=== PATIENT | male | born 1940 | race Caucasian/White ===

== ENCOUNTER 2022-01-16 18:04 | Emergency (ER) | payer MEDICARE, OTHER ==
[~2022-01-16] VITALS: Ht 177.8 cm; Wt 82.0 kg
[~2022-01-16 18:04] MED LIST: LISINOPRIL10 MG PO; NAPROSYN500 MG PO; NEXIUM40 M1 PO; TESSALON PER100 MG PO
[2022-01-16 21:16] LABS: HEMATOCRIT 45.2 % (39.0-50.0); HEMOGLOBIN 14.4 g/dl (14.0-18.0); MEAN CELL VOLUME 85.9 fL CALC (80.0-100.0); MEAN CORPUSCULAR HGB 27.4 pG CALC (26.0-32.0); MEAN CORPUSCULAR HGB CONC 31.9 g/dL CAL (32.0-36.0); NEUT# 9.89 thou/uL (1.82-7.42); RED BLOOD COUNT 5.26 mill/uL (4.70-6.10); RED CELL DISTRI WIDTH 14.9 % (11.5-15.5)
[2022-01-16 21:33] LABS: ALBUMIN 4.6 g/dL (3.2-5.0); ALKALINE PHOSPHATASE 69 u/l (38-126); ANION GAP 17 (6-22 (CALC)); BILIRUBIN, TOTAL 0.4 mg/dL (0.0-1.4); BUN 21 mg/dL (8-23); BUN/CREATININE RATIO 18 (12-20 (CALC)); CARBON DIOXIDE 22 mmol/l (22-30); CHLORIDE 106 mmol/l (95-108); CREATININE 1.2 mg/dL (0.7-1.3); GFR 58 ML/MIN (>=60 (CALC)); GFR FOR AFR.AMER. > 60 ML/MIN (>=60 (CALC)); POTASSIUM 4.8 mmol/l (3.5-5.1); SGOT/AST 27 u/l (19-48); SODIUM 140 mmol/l (137-146)
[2022-01-16 23:13] LABS: URINE BILIRUBIN - DIPSTICK NEGATIVE (NEGATIVE); URINE BLOOD DIPSTICK NEGATIVE (NEGATIVE); URINE CLARITY CLEAR; URINE COLOR YELLOW; URINE GLUCOSE - DIPSTICK NEGATIVE (NEGATIVE); URINE KETONE NEGATIVE (NEGATIVE); URINE LEUK ESTERASE NEGATIVE (Negative); URINE NITRITE - DIPSTICK NEGATIVE (Negative); URINE PH 5.5 (4.5-8.0); URINE PROTEIN - DIPSTICK NEGATIVE (NEG-TRACE); URINE SPECIFIC GRAVITY 1.025; URINE UROBILINOGEN - DIPSTICK 0.2 E.U./dL (0.2)
[2022-01-16 23:40] VITALS: BP 120/80
== END 2022-01-16 23:40 | disposition home or self-care (01) ==
LOC: ED 18:04
PROVIDERS: Family Medicine
DX: S16.1XXA Strain of muscle, fascia and tendon at neck level, initial encounter (principal); S29.012A Strain of muscle and tendon of back wall of thorax, initial encounter; S39.012A Strain of muscle, fascia and tendon of lower back, initial encounter; S80.02XA Contusion of left knee, initial encounter; I10 Essential (primary) hypertension; V86.09XA Driver of other special all-terrain or other off-road motor vehicle injured in traffic accident, initial encounter; Y92.414 Local residential or business street as the place of occurrence of the external cause

== ENCOUNTER 2022-12-28 11:00 | Inpatient (IN) | payer MEDICARE, OTHER ==
[2022-12-28] VITALS (22 sets, daily range): BP systolic 137–205; BP diastolic 82–114
[~2022-12-28] VITALS: Ht 177.8 cm; Wt 75.0 kg
[2022-12-28 11:56] LABS: BASO% 0.3 % (0-3); EOS% 0.4 % (0-8); HEMOGLOBIN 13.4 g/dl (14.0-18.0); IMMATURE GRANULOCYTES 2.3 % (0.0-5.0); LYMPH% 23.7 % (15-41); MEAN CORPUSCULAR HGB 27.1 pG CALC (26.0-32.0); MEAN CORPUSCULAR HGB CONC 31.9 g/dL CAL (32.0-36.0); MONO% 15.6 % (2-13); NEUT# 10.95 thou/uL (1.82-7.42); NEUT% 57.7 % (42-76); RED BLOOD COUNT 4.94 mill/uL (4.70-6.10); RED CELL DISTRI WIDTH 15.1 % (11.5-15.5)
[2022-12-28 12:05] LABS: ALBUMIN 4.5 g/dL (3.2-5.0); BILIRUBIN, TOTAL 0.5 mg/dL (0.2-1.3); POTASSIUM 4.3 mmol/l (3.5-5.1); TOTAL PROTEIN 7.7 g/dL (6.3-8.2)
[2022-12-28 12:30] LABS: CREATININE 3.2 mg/dL (0.7-1.3)
[2022-12-28 13:09] LABS: URINE BILIRUBIN - DIPSTICK NEGATIVE (NEGATIVE); URINE BLOOD DIPSTICK MODERATE (NEGATIVE); URINE COLOR YELLOW; URINE GLUCOSE - DIPSTICK NEGATIVE (NEGATIVE); URINE KETONE NEGATIVE (NEGATIVE); URINE LEUK ESTERASE NEGATIVE (NEGATIVE); URINE PROTEIN - DIPSTICK NEGATIVE (NEG-TRACE); URINE UROBILINOGEN - DIPSTICK 0.2 E.U./dL (0.2)
[2022-12-28 13:23] LABS: URINE NITRITE - DIPSTICK NEGATIVE (Negative)
[2022-12-28] MEDS ORDERED: LISINOP/HCTZ1 TA2 PO (20:32)
[2022-12-29] VITALS (9 sets, daily range): BP systolic 107–196; BP diastolic 53–94
[2022-12-29 05:55] LABS: BASO% 0.4 % (0-3); EOS% 0.1 % (0-8); HEMATOCRIT 36.4 % (39.0-50.0); IMMATURE GRANULOCYTES 1.9 % (0.0-5.0); LYMPH% 18.6 % (15-41); MEAN CELL VOLUME 86.1 fL CALC (80.0-100.0); MEAN CORPUSCULAR HGB CONC 31.3 g/dL CAL (32.0-36.0); MONO% 16.9 % (2-13); NEUT# 12.18 thou/uL (1.82-7.42); NEUT% 62.1 % (42-76); RED BLOOD COUNT 4.23 mill/uL (4.70-6.10); RED CELL DISTRI WIDTH 15.2 % (11.5-15.5)
[2022-12-29 05:56] LABS: HEMOGLOBIN 11.4 g/dl (14.0-18.0)
[2022-12-29 06:32] LABS: ALBUMIN 3.5 g/dL (3.2-5.0); BILIRUBIN, TOTAL 0.4 mg/dL (0.2-1.3); POTASSIUM 3.8 mmol/l (3.5-5.1); TOTAL PROTEIN 6.3 g/dL (6.3-8.2)
[2022-12-30] VITALS (7 sets, daily range): BP systolic 126–190; BP diastolic 71–99
[2022-12-30 05:54] LABS: HEMATOCRIT 40.3 % (39.0-50.0); IMMATURE GRANULOCYTES 4.5 % (0.0-5.0); MEAN CELL VOLUME 84.8 fL CALC (80.0-100.0); MEAN CORPUSCULAR HGB 27.4 pG CALC (26.0-32.0); MEAN CORPUSCULAR HGB CONC 32.3 g/dL CAL (32.0-36.0); PLATELET COUNT 164 thou/uL (130-400); RED BLOOD COUNT 4.75 mill/uL (4.70-6.10); RED CELL DISTRI WIDTH 15.3 % (11.5-15.5)
[2022-12-30 06:01] LABS: MANUAL DIFFERENTIAL YES
[2022-12-30 06:18] LABS: BAND 0 % (0-8)
[2022-12-30 06:21] LABS: ALBUMIN 4.1 g/dL (3.2-5.0); BILIRUBIN, TOTAL 0.4 mg/dL (0.2-1.3); CREATININE 2.8 mg/dL (0.7-1.3); POTASSIUM 3.5 mmol/l (3.5-5.1); TOTAL PROTEIN 7.5 g/dL (6.3-8.2)
[2022-12-31] VITALS (8 sets, daily range): BP systolic 112–168; BP diastolic 59–85
[2022-12-31 05:36] LABS: HEMATOCRIT 36.2 % (39.0-50.0); HEMOGLOBIN 11.8 g/dl (14.0-18.0); IMMATURE GRANULOCYTES 3.7 % (0.0-5.0); MEAN CELL VOLUME 82.3 fL CALC (80.0-100.0); MEAN CORPUSCULAR HGB 26.8 pG CALC (26.0-32.0); MEAN CORPUSCULAR HGB CONC 32.6 g/dL CAL (32.0-36.0); PLATELET COUNT 170 thou/uL (130-400); RED CELL DISTRI WIDTH 15.2 % (11.5-15.5)
[2022-12-31 05:53] LABS: MANUAL DIFFERENTIAL YES
[2022-12-31 05:55] LABS: ALBUMIN 3.5 g/dL (3.2-5.0); BILIRUBIN, TOTAL 0.4 mg/dL (0.2-1.3); CREATININE 1.9 mg/dL (0.7-1.3)
[2022-12-31 06:26] LABS: POTASSIUM 2.7 mmol/l (3.5-5.1)
[2022-12-31 06:37] LABS: BAND 0 % (0-8)
[2023-01-01 04:12] VITALS: BP 164/85
[2023-01-01 06:34] LABS: ALBUMIN 3.4 g/dL (3.2-5.0); BASO% 0.2 % (0-3); CREATININE 1.6 mg/dL (0.7-1.3); EOS% 0.2 % (0-8); HEMATOCRIT 37.5 % (39.0-50.0); HEMOGLOBIN 12.1 g/dl (14.0-18.0); IMMATURE GRANULOCYTES 3.3 % (0.0-5.0); LYMPH% 18.1 % (15-41); MEAN CELL VOLUME 81.7 fL CALC (80.0-100.0); MEAN CORPUSCULAR HGB 26.4 pG CALC (26.0-32.0); MEAN CORPUSCULAR HGB CONC 32.3 g/dL CAL (32.0-36.0); MONO% 12.2 % (2-13); NEUT# 14.44 thou/uL (1.82-7.42); RED BLOOD COUNT 4.59 mill/uL (4.70-6.10); RED CELL DISTRI WIDTH 15.2 % (11.5-15.5); TOTAL PROTEIN 6.7 g/dL (6.3-8.2)
[2023-01-01 06:36] LABS: POTASSIUM 2.7 mmol/l (3.5-5.1)
[2023-01-01 06:40] LABS: BILIRUBIN, TOTAL 0.7 mg/dL (0.2-1.3)
[2023-01-01 07:07] VITALS: BP 142/83
[2023-01-01 11:10] VITALS: BP 124/67
[2023-01-01 15:39] VITALS: BP 101/56
[2023-01-01 20:00] VITALS: BP 112/61
[2023-01-01 20:05] VITALS: BP 112/61
[2023-01-02] VITALS (7 sets, daily range): BP systolic 126–1136; BP diastolic 65–92
[2023-01-02 05:26] LABS: BASO% 0.3 % (0-3); HEMOGLOBIN 11.1 g/dl (14.0-18.0); LYMPH% 20.1 % (15-41); MEAN CORPUSCULAR HGB CONC 31.7 g/dL CAL (32.0-36.0); MONO% 9.9 % (2-13); NEUT# 13.43 thou/uL (1.82-7.42); NEUT% 66.5 % (42-76); RED BLOOD COUNT 4.27 mill/uL (4.70-6.10); RED CELL DISTRI WIDTH 15.1 % (11.5-15.5)
[2023-01-02 05:35] LABS: ALBUMIN 2.8 g/dL (3.2-5.0); CREATININE 1.4 mg/dL (0.7-1.3); MAGNESIUM 1.5 mg/dL (1.6-2.3); TOTAL PROTEIN 5.6 g/dL (6.3-8.2)
[2023-01-02 05:37] LABS: BILIRUBIN, TOTAL 0.3 mg/dL (0.2-1.3)
[2023-01-02 06:02] LABS: IMMATURE GRANULOCYTES 3.2 % (0.0-5.0)
[2023-01-02] MEDS ORDERED: TAMSULOSIN HCL0.4 MG PO (12:32)
[2023-01-02] MEDS ORDERED: DEXAMETHASON6 MG PO (12:32)
[2023-01-02] MEDS ORDERED: CIPROFLOXACN500 MG PO (12:37)
== END 2023-01-02 17:38 | DRG 682 ==
LOC: ED 11:00 → ED-I 15:00 → ED 15:18 → MS2 15:49
PROVIDERS: Family Medicine; Nurse Practitioner Family; ADMIT Internal Medicine; ATTEND Internal Medicine
PROC: 0T9B70Z Drainage of Bladder with Drainage Device, Via Natural or Artificial Opening (ICD-10-PCS; principal; 2022-12-29)
DX: N17.9 Acute kidney failure, unspecified (principal); U07.1 COVID-19; M48.56XA Collapsed vertebra, not elsewhere classified, lumbar region, initial encounter for fracture; R97.20 Elevated prostate specific antigen [PSA]; N13.30 Unspecified hydronephrosis; E86.0 Dehydration; R33.9 Retention of urine, unspecified; N39.490 Overflow incontinence; I12.9 Hypertensive chronic kidney disease with stage 1 through stage 4 chronic kidney disease, or unspecified chronic kidney disease; N18.9 Chronic kidney disease, unspecified; M25.50 Pain in unspecified joint; Z85.46 Personal history of malignant neoplasm of prostate; Z92.3 Personal history of irradiation
CPT/HCPCS: J3475

== ENCOUNTER 2024-12-07 18:48 | Emergency (ER) | payer MEDICARE, OTHER ==
[~2024-12-07] VITALS: Ht 177.8 cm; Wt 84.0 kg
[~2024-12-07 18:48] MED LIST changes: +CIPROFLOXACN500 MG PO; +DEXAMETHASON6 MG PO; +LISINOP/HCTZ1 TA2 PO; +TAMSULOSIN HCL0.4 MG PO
[2024-12-07 19:16] VITALS: BP 145/65
[2024-12-07 19:48] VITALS: BP 173/88
[2024-12-07 20:00] VITALS: BP 150/72
[2024-12-07 20:15] VITALS: BP 138/69; BP 150/72
== END 2024-12-07 20:30 | disposition home or self-care (01) ==
LOC: ED 18:48
DX: S00.03XA Contusion of scalp, initial encounter (principal); I10 Essential (primary) hypertension; W01.0XXA Fall on same level from slipping, tripping and stumbling without subsequent striking against object, initial encounter; Y92.009 Unspecified place in unspecified non-institutional (private) residence as the place of occurrence of the external cause